=== PATIENT | male | born 1970 | race African-American/Black ===

== ENCOUNTER 2019-01-17 10:20 | Emergency (ER) | payer SELFPAY ==
[2019-01-17 11:40] LABS: Hemoglobin 14.3 g/dL (14.0-18.0); Mean Corpuscular HGB CONC 32.3 g/dL (32.0-36.0); Mean Corpuscular Hemoglobin 29.1 pg (27.0-31.0); Mean Corpuscular Volume 90.2 fL (78.0-98.0); Platelet Count 243 thou/uL (130-400); RBC Distribution Width 12.2 % (11.5-14.5); Red Blood Cell (RBC) Count 4.89 mill/uL (4.70-6.10); White Blood Cell (WBC) Count 4.9 thou/uL (4.8-10.8)
[2019-01-17 11:55] LABS: Band 1 % (5-11); Lymphocytes 40 % (21-51); MDiff Complete? YES; Monocytes 4 % (0-10); Neutrophil 55 % (42-75); RBC Morphology Normal
== END 2019-01-17 12:37 | disposition home or self-care (01) ==
LOC: ERS 10:20
DX: K64.9 Unspecified hemorrhoids (principal); I10 Essential (primary) hypertension
CPT/HCPCS: 36415; 85025; 99283

== ENCOUNTER 2021-05-01 12:34 | Emergency (ER) | payer SELFPAY | END 2021-05-01 13:20 | disposition home or self-care (01) | LOC: ERS 12:34 | DX: M54.50 Low back pain, unspecified (principal); I10 Essential (primary) hypertension; M10.9 Gout, unspecified | CPT/HCPCS: 99283 ==